=== PATIENT | male | born 1980 | race Caucasian/White ===

== ENCOUNTER 2022-03-10 10:12 | Emergency (ER) | payer OTHER ==
[2022-03-10] MEDS ORDERED: DORZOLAMIDE-TIM10 ML EYEBOTH (10:48)
== END 2022-03-10 13:11 | disposition home or self-care (01) ==
LOC: FER 10:12
DX: L60.0 Ingrowing nail (principal)
CPT/HCPCS: 99282

== ENCOUNTER 2022-05-08 15:50 | Emergency (ER) | payer OTHER ==
[~2022-05-08 15:50] MED LIST: DORZOLAMIDE-TIM10 ML EYEBOTH
[2022-05-08 18:52] LABS: INFLUENZA A NAA NEGATIVE (NEGATIVE)
[2022-05-08 19:12] LABS: CORONAVIRUS 2019 SARS-COV-2 POSITIVE (NEGATIVE)
== END 2022-05-08 20:05 | disposition home or self-care (01) ==
LOC: FER 15:50
PROVIDERS: Physician Assistant
DX: U07.1 COVID-19 (principal)
CPT/HCPCS: 99284; U0002